=== PATIENT | male | born 1980 | race Two or more races ===

== ENCOUNTER 2020-07-31 01:43 | Inpatient (IN) | payer MEDICAID ==
[~2020-07-31] VITALS: Ht 185.4 cm; Wt 101.7 kg
[2020-07-31 04:28] VITALS: BP 133/73
[2020-07-31] MEDS: ZOLPIDEM TARTRATE 10 MG TABLET PO PRN ×2 (04:31→20:26)
[2020-07-31] MEDS: LORazepam 2 MG TABLET PO PRN ×3 (04:31→18:36)
[2020-07-31] MEDS ORDERED: PNEUMOCOCCAL VACCINE POLYVALENT 0.5 ML VIAL [PPSV23] IM. ONE (05:15)
[2020-07-31] MEDS ORDERED: IBUP-2071 PO (05:27)
[2020-07-31] MEDS ORDERED: OXYC-601 PO (05:27)
[2020-07-31] MEDS ORDERED: GABA-1201 PO ×2 (05:27→09:40)
[2020-07-31] MEDS ORDERED: METH4TAB16 PO (05:27)
[2020-07-31] MEDS ORDERED: METH-661 PO (05:27)
[2020-07-31] MEDS ORDERED: INSLAN SQ (05:27)
[2020-07-31] MEDS ORDERED: INSU100V SQ (05:27)
[2020-07-31 06:39] LABS: GLUCOMETER DEV NAME(LOC) BV2S.; GLUCOSE,POINT OF CARE 249 MG/DL (70-110)
[2020-07-31 07:37] LABS: GLUCOMETER DEV NAME(LOC) BV2S.; GLUCOSE,POINT OF CARE 246 MG/DL (70-110)
[2020-07-31] MEDS ORDERED: ONDANSETRON HCL 4 MG TABLET PO PRN (09:00)
[2020-07-31] MEDS ORDERED: GLUCAGON,HUMAN RECOMBINANT 1 MG VIAL IM PRN (09:00)
[2020-07-31] MEDS ORDERED: MAGNESIUM HYDROXIDE SUSPENSION 30 ML UDCUP PO PRN (09:00)
[2020-07-31] MEDS ORDERED: CloNIDine HCL 0.1 MG TABLET PO PRN (09:00)
[2020-07-31] MEDS ORDERED: DOCUSATE SODIUM 100 MG CAPSULE PO PRN (09:00)
[2020-07-31] MEDS ORDERED: ACETAMINOPHEN 325 MG TABLET PO PRN (09:00)
[2020-07-31] MEDS ORDERED: ALBUTEROL SULFATE HFA 90 MCG/PUFF 8 GM INHALER IH PRN (09:00)
[2020-07-31] MEDS ORDERED: BACITRACIN 28 GM OINTMENT TP PRN (09:00)
[2020-07-31] MEDS ORDERED: OMEPRAZOLE 20 MG CAPSULE PO PRN (09:00)
[2020-07-31] MEDS: METHOCARBAMOL 750 MG TABLET PO SCH ×3 (09:00→16:25)
[2020-07-31] MEDS ORDERED: PETROLATUM,WHITE 28 GM JELLY TP PRN (09:00)
[2020-07-31] MEDS ORDERED: LOPERAMIDE HCL 2 MG CAPSULE PO PRN (09:00)
[2020-07-31] MEDS ORDERED: MAG HYDROX/AL HYDROX/SIMETH ES 30 ML SUSPENSION UDCUP PO PRN (09:00)
[2020-07-31] MEDS ORDERED: IBUPROFEN 600 MG TABLET PO PRN (09:00)
[2020-07-31] MEDS ORDERED: BENZOCAINE/MENTHOL LOZENGE PO PRN (09:00)
[2020-07-31] MEDS: INSULIN GLARGINE,HUM.REC.ANLOG 100 UNITS/ML SQ SCH ×2 (09:36→16:30)
[2020-07-31] MEDS: GABAPENTIN 400 MG CAPSULE PO SCH ×3 (09:38→16:24)
[2020-07-31] MEDS ORDERED: QUET100T PO (09:39)
[2020-07-31] MEDS ORDERED: TRAZ-184 PO (09:39)
[2020-07-31] MEDS ORDERED: CLON-592 PO (09:39)
[2020-07-31] MEDS: INSULIN LISPRO 100 UNITS/ML SQ PRN ×3 (11:43→20:50)
[2020-07-31] MEDS ORDERED: OxyCODONE HCL 5 MG IR TABLET PO PRN (15:00)
[2020-07-31 15:22] VITALS: BP 130/75
[2020-07-31 16:18] VITALS: BP 111/74
[2020-07-31 16:55] LABS: GLUCOMETER DEV NAME(LOC) BV2S.; GLUCOSE,POINT OF CARE 213 MG/DL (70-110)
[2020-07-31 20:50] LABS: GLUCOMETER DEV NAME(LOC) BV2S.; GLUCOSE,POINT OF CARE 274 MG/DL (70-110)
[2020-08-01 01:38] VITALS: BP 122/79
[2020-08-01] MEDS: HALOPERIDOL 5 MG TABLET PO PRN ×3 (02:57→15:49)
[2020-08-01 06:28] LABS: GLUCOMETER DEV NAME(LOC) BV2S.; GLUCOSE,POINT OF CARE 235 MG/DL (70-110)
[2020-08-01] MEDS: INSULIN LISPRO 100 UNITS/ML SQ PRN ×2 (06:51→11:07)
[2020-08-01 08:06] LABS: BASOPHILS % (AUTO) 0.6 % (0.0-2.0); EOSINOPHILS % (AUTO) 3.5 % (1.0-6.0); HEMATOCRIT 42.8 % (41-53); HEMOGLOBIN 14.3 g/dL (13.5-17.5); LYMPHOCYTES # (AUTO) 1.6 K/uL (1.0-4.8); LYMPHOCYTES % (AUTO) 22.8 % (22.0-44.0); MEAN CORPUSCULAR HEMOGLOBIN 30.7 pg (26.0-34.0); MEAN CORPUSCULAR HGB CONC 33.4 G/dL (31.0-37.0); MEAN CORPUSCULAR VOLUME 92 fL (80-100); MONOCYTES # (AUTO) 0.6 K/uL (0.1-1.0); MONOCYTES % (AUTO) 8.7 % (2.0-9.0); NEUTROPHILS # (AUTO) 4.5 K/uL (1.8-7.7); NEUTROPHILS % (AUTO) 64.4 % (40.0-70.0); PLATELET COUNT (AUTO) 207 K/uL (150-450); RED BLOOD CELL COUNT(AUTO) 4.66 MIL/uL (4.50-5.90); RED CELL DISTRIBUTION WIDTH 13.2 % (11.5-14.5)
[2020-08-01 08:12] LABS: HEMOGLOBIN A1C 7.9 % (3.8-5.6)
[2020-08-01 08:46] VITALS: BP 124/80
[2020-08-01] MEDS: GABAPENTIN 400 MG CAPSULE PO SCH ×3 (08:54→15:49)
[2020-08-01 08:56] LABS: ALANINE AMINOTRANSFERASE 22 U/L (12-78); ALBUMIN 3.4 g/dL (3.4-5.0); ALKALINE PHOSPHATASE 67 U/L (46-116); ANION GAP 7 mmol/L (8-16); ASPARTATE AMINOTRANSFERASE 15 U/L (15-37); BILIRUBIN,TOTAL 0.4 mg/dL (0.1-1.0); CALCIUM, TOTAL 8.5 mg/dL (8.8-10.5); CARBON DIOXIDE 25 mmol/L (22-29); CHLORIDE 105 mmol/L (98-107); CHOL/HDL RATIO 6.5 (4.2-7.3); CHOLESTEROL 201 mg/dL (131-200); CREATININE 0.72 mg/dL (0.60-1.30); FREE T4 (FREE THYROXINE) 0.94 ng/dL (0.76-1.46); GLOMERULAR FILTR. RATE CALC > 60 mL/min (>60); GLUCOSE,RANDOM 219 mg/dL (70-110); HDL CHOLESTEROL 31 mg/dL (40-60); LDL CHOL (CALC.) 147 mg/dL (0-130); POTASSIUM 3.7 mmol/L (3.5-5.1); SODIUM SERUM 137 mmol/L (136-145); THYROID STIMULATING HORMONE 2.21 uIU/mL (0.36-3.74); TOTAL PROTEIN, SERUM 6.9 g/dL (6.4-8.2); TRIGLYCERIDES 115 mg/dL (15-150); UREA NITROGEN, BLOOD 15 mg/dL (7-18)
[2020-08-01] MEDS: INSULIN GLARGINE,HUM.REC.ANLOG 100 UNITS/ML SQ SCH ×2 (09:00→16:57)
[2020-08-01 11:19] LABS: GLUCOMETER DEV NAME(LOC) BV2S.; GLUCOSE,POINT OF CARE 153 MG/DL (70-110)
[2020-08-01 16:21] VITALS: BP 130/80
== END 2020-08-01 18:30 | disposition home or self-care (01) | DRG 754 ==
LOC: B2S 02:52
PROVIDERS: ADMIT Psychiatry & Neurology Psychiatry; ATTEND Psychiatry & Neurology Psychiatry
PROC: 3E0234Z Introduction of Serum, Toxoid and Vaccine into Muscle, Percutaneous Approach (ICD-10-PCS; principal; 2020-07-31)
DX: F32.9 Major depressive disorder, single episode, unspecified (principal); E11.9 Type 2 diabetes mellitus without complications; G47.00 Insomnia, unspecified; G89.29 Other chronic pain; F41.9 Anxiety disorder, unspecified; Z23 Encounter for immunization
CPT/HCPCS: 80053; 80061; 82962; 83036; 84439; 84443; 85025; 87081; 90732; J1815